=== PATIENT | male | born 1980 | race Caucasian/White ===

== ENCOUNTER 2019-01-06 12:25 | Emergency (ER) | payer OTHER ==
--- NOTE | 2019-01-06 13:18 | XRAY Report ---
Reason: cough, sob Procedure Date: 01/06/2019 Accession Number: [id number] / [id number] Procedure: XR - Chest 2 View X-Ray CPT Code: 73224 Final Report FULL RESULT: EXAM: CHEST RADIOGRAPHY EXAM DATE: 01/06/2019 12:50 PM HISTORY: cough, sob COMPARISON: CHEST 2 VIEW PA/LAT 04/30/2013 1:30 PM TECHNIQUE: Two Views FINDINGS: Lungs/Pleura: The lungs are clear. No consolidation, edema or pleural effusion. Cardiomediastinal silhouette: Unremarkable accounting for technique. Other: None. IMPRESSION: No acute disease. RADIA
--- NOTE | 2019-01-06 14:59 | ED Physician Documentation ---
PD HPI URI - Stated complaint Stated Complaint: SOA/COUGH - Chief complaint Chief Complaint: Resp - History obtained from History obtained from: Patient - History of Present Illness Timing - onset: Yesterday Timing duration: Days (2) Timing details: Abrupt onset, Still present Associated symptoms: Chills, Dry cough, Dyspnea. No: Ear pain, NVD Contributing factors: No: Sick contact, Immunocompromised, COPD / asthma Similar symptoms before: Has not had sx before Recently seen: Not recently seen Review of Systems Constitutional: reports: Chills, Myalgias Nose: reports: Congestion Throat: denies: Sore throat Respiratory: reports: Dyspnea (with hoarse voice as well), Cough, Wheezing (tightness, with mild wheezing per se, but has feeling of cough with moderate deep breathing.) Neurologic: denies: Generalized weakness, Focal weakness, Numbness, Near syncope, Altered mental status, Headache PD PAST MEDICAL HISTORY - Past Medical History Past Medical History: No Cardiovascular: None Respiratory: None Musculoskeletal: Other (arthritis in hands mostly. ) - Past Surgical History Past Surgical History: Yes HEENT: Tonsil/Adenoidectomy - Present Medications Home Medications: Ambulatory Orders Medication Instructions Recorded Confirmed raNITIdine HCl [Zantac] 150 mg PO BID 28 Days tablet 04/30/13 Albuterol Sulf [Ventolin Hfa 1 - 2 puffs INH Q4HR PRN #1 inhaler 01/06/19 Inhaler] Benzonatate [Tessalon Perle] 100 - 200 mg PO TID PRN #30 capsule 01/06/19 dexAMETHasone [Decadron] 4 mg PO DAILY #7 tablet 01/06/19 guaiFENesin/CODEINE [Robitussin AC] 10 ml PO Q6H PRN #240 ml 01/06/19 - Allergies Allergies/Adverse Reactions: Allergies Allergy/AdvReac Type Severity Reaction Status Date / Time No Known Drug Allergies Allergy Verified 04/30/13 11:57 - Social History Does the pt smoke?: No Smoking Status: Never smoker Does the pt drink ETOH?: No Does the pt have substance abuse?: No - Immunizations Immunizations are current?: Yes - POLST Patient has POLST: No PD ED PE NORMAL - Vitals Vital signs reviewed: Yes - General General: Alert and oriented X 3, No acute distress, Well developed/nourished - HEENT HEENT: Moist mucous membranes, Pharynx benign - Neck Neck: Supple, no meningeal sign - Cardiac Cardiac: RRR, No murmur - Respiratory Respiratory: Clear bilaterally - Abdomen Abdomen: Soft, Non tender - Derm Derm: Normal color, Warm and dry, No rash - Neuro Neuro: Alert and oriented X 3, No motor deficit, Normal speech Results - Vitals Vitals: Vital Signs - 24 hr 01/06/19 01/06/19 01/06/19 12:32 15:45 16:19 Temperature 36.9 C Heart Rate 100 104 H 90 Respiratory 20 18 16 Rate Blood Pressure 148/83 H 140/80 H O2 Saturation 97 98 Oxygen O2 Source Room air - Rads (name of study) chest xray Radiology: Prelim report reviewed (no acute process), See rad report PD MEDICAL DECISION MAKING - ED course Complexity details: reviewed results, considered differential (seems like viral URI. [facility] and [facility] referred him to ER for eval.), d/w patient Departure - Departure Disposition: 01 Home, Self Care Clinical Impression: Upper respiratory infection Qualifiers: URI type: unspecified URI Qualified Code(s): J06.9 - Acute upper respiratory infection, unspecified Condition: Stable Record reviewed to determine appropriate education?: Yes Instructions: ED URI Viral W Wheezing Follow-Up: LAMONT MORENO [Primary Care Provider] - Prescriptions: Albuterol Sulf [Ventolin Hfa Inhaler] 1 - 2 puffs INH Q4HR PRN #1 inhaler PRN Reason: Shortness Of Air/Wheezing Benzonatate [Tessalon Perle] 100 - 200 mg PO TID PRN #30 capsule PRN Reason: Cough dexAMETHasone [Decadron] 4 mg PO DAILY #7 tablet guaiFENesin/CODEINE [Robitussin AC] 10 ml PO Q6H PRN #240 ml PRN Reason: Cough Comments: This likely is a viral infection. As such antibiotics will not be helpful. What will be helpful will be use of an albuterol inhaler 2 to 3 puffs 4 times a day and extra times as needed for coughing and wheezing. Also helpful will be Decadron steroid anti-inflammatory daily for a week. Continue usual medicines otherwise. Add Tylenol if needed for fevers or pains. Add benzonatate as needed for cough suppression. You can use use cough medicine if needed. Stay well-hydrated. Rest off work for couple of days. You likely will be ill for 6 or 7 days but it should be tapering off after the first few. Follow-up with [facility] care [facility] if not improving moderately well over the next few days. Forms: Activity restrictions Discharge Date/Time: 01/06/19 16:19
[2019-01-06] MEDS ORDERED: CHERRY SYRUP 10 ML UDC PO ONE (15:30)
[2019-01-06] MEDS ORDERED: BENZONATATE 100 MG CAPSULE PO STA (15:30)
[2019-01-06] MEDS ORDERED: ACETAMINOPHEN 325 MG TABLET PO STA (15:30)
[2019-01-06] MEDS ORDERED: ALBUTEROL NEB 2.5 MG/3 ML INH STA (15:30)
[2019-01-06] MEDS ORDERED: DEXAMETHASONE 10 MG/ML VIAL PO STA (15:30)
[2019-01-06 16:20] VITALS: BP 140/80
== END 2019-01-06 16:19 | disposition home or self-care (01) ==
LOC: ED 12:25
DX: J06.9 Acute upper respiratory infection, unspecified (principal)
CPT/HCPCS: 71046; 94640; 99283; A9270